=== PATIENT | male | born 1975 | race Caucasian/White ===

== ENCOUNTER 2017-05-27 09:33 | Emergency (ER) | payer OTHER ==
[~2017-05-27] VITALS: Ht 182.9 cm; Wt 100.0 kg
[~2017-05-27 09:33] MED LIST: BACTROBAN2 % EX; CEPHALEXIN500 MG OR; NAPROSYN500 MG PO; NO HOME MEDS
[2017-05-27] MEDS ORDERED: RIFAMPIN300 MG PO (09:46)
[2017-05-27 10:19] VITALS: BP 133/81
== END 2017-05-27 10:29 | disposition home or self-care (01) | DRG 951 ==
LOC: ED 09:33
DX: Z20.811 Contact with and (suspected) exposure to meningococcus (principal)

== ENCOUNTER 2018-04-20 15:59 | Emergency (ER) | payer BC ==
[~2018-04-20] VITALS: Ht 182.9 cm; Wt 110.4 kg
[~2018-04-20 15:59] MED LIST changes: +RIFAMPIN300 MG PO
[2018-04-20] MEDS ORDERED: MOTRIN400 MG PO (16:54)
[2018-04-20 16:56] VITALS: BP 147/94
== END 2018-04-20 17:12 | disposition home or self-care (01) | DRG 563 ==
LOC: ED 15:59
DX: S86.811A Strain of other muscle(s) and tendon(s) at lower leg level, right leg, initial encounter (principal); X58.XXXA Exposure to other specified factors, initial encounter

== ENCOUNTER 2018-04-24 12:23 | Emergency (ER) | payer BC ==
[~2018-04-24] VITALS: Ht 182.9 cm; Wt 100.0 kg
[~2018-04-24 12:23] MED LIST changes: +MOTRIN400 MG PO
[2018-04-24 13:11] LABS: IMMATURE GRANULOCYTES 0.3 % (0.0-5.0); MEAN CORPUSCULAR HGB 29.7 pG CALC (26.0-32.0); MEAN CORPUSCULAR HGB CONC 34.3 g/L CALC (32.0-36.0); NEUT# 6.5 thou/uL (1.82-7.42); RED BLOOD COUNT 5.52 mill/uL (4.70-6.10); RED CELL DISTRI WIDTH 11.9 % (11.5-15.5)
[2018-04-24 13:22] LABS: HEMATOCRIT 47.8 % (39.0-50.0); HEMOGLOBIN 16.4 g/dl (14.0-18.0); MEAN CELL VOLUME 86.6 fL CALC (80.0-100.0)
[2018-04-24 13:30] LABS: PROTHROMBIN TIME 10.9 SECONDS (9.0-12.5)
[2018-04-24 13:34] LABS: ALBUMIN 4.9 g/dL (3.2-5.0); ALKALINE PHOSPHATASE 85 u/l (38-126); ANION GAP 16 (6-22 (CALC)); BILIRUBIN, TOTAL 0.6 mg/dL (0.0-1.4); BUN 14 mg/dL (9-20); BUN/CREATININE RATIO 17 (12-20 (CALC)); CARBON DIOXIDE 26 mmol/l (22-30); CHLORIDE 106 mmol/l (95-108); CREATININE 0.9 mg/dL (0.7-1.3); ETHYL ALCOHOL 0 mg/dl (0-30); GFR > 60 ML/MIN (>=60 (CALC)); GFR FOR AFR.AMER. > 60 ML/MIN (>=60 (CALC)); LIPASE 118 u/l (23-300); SGOT/AST 23 u/l (17-59); SGPT/ALT 35 u/l (21-72); SODIUM 144 mmol/l (137-146); TOTAL PROTEIN 8.6 g/dL (6.3-8.2)
[2018-04-24 13:46] LABS: MYOGLOBIN 22 ng/mL (0 - 121)
[2018-04-24 13:51] LABS: URINE BILIRUBIN - DIPSTICK NEGATIVE (NEGATIVE); URINE BLOOD DIPSTICK TRACE-INTACT (NEGATIVE); URINE COLOR YELLOW; URINE GLUCOSE - DIPSTICK NEGATIVE (NEGATIVE); URINE KETONE TRACE mg/dL (NEGATIVE); URINE LEUK ESTERASE NEGATIVE (NEGATIVE); URINE NITRITE - DIPSTICK NEGATIVE (Negative); URINE PROTEIN - DIPSTICK NEGATIVE (NEG-TRACE)
[2018-04-24 13:54] LABS: URINE CLARITY HAZY
[2018-04-24 13:55] LABS: BARBITURATES NEGATIVE (NEGATIVE); COCAINE NEGATIVE (NEGATIVE); METHADONE NEGATIVE (NEGATIVE); OXCYCODONE NEGATIVE (NEGATIVE); TETRAHYDROCANNABIONOL NEGATIVE (NEGATIVE); TRICYLIC ANTIDEPRESSANTS NEGATIVE (NEGATIVE)
[2018-04-24 15:12] VITALS: BP 153/80
== END 2018-04-24 15:13 | disposition home or self-care (01) | DRG 948 ==
LOC: ED 12:23
PROVIDERS: Emergency Medicine
DX: R41.82 Altered mental status, unspecified (principal)

== ENCOUNTER 2018-04-26 12:11 | Emergency (ER) | payer BC ==
[~2018-04-26] VITALS: Ht 182.9 cm; Wt 102.3 kg
[2018-04-26 12:47] LABS: HEMATOCRIT 47.5 % (39.0-50.0); HEMOGLOBIN 16.5 g/dl (14.0-18.0); IMMATURE GRANULOCYTES 0.4 % (0.0-5.0); MEAN CELL VOLUME 85.4 fL CALC (80.0-100.0); MEAN CORPUSCULAR HGB 29.7 pG CALC (26.0-32.0); MEAN CORPUSCULAR HGB CONC 34.7 g/L CALC (32.0-36.0); NEUT# 8.58 thou/uL (1.82-7.42); RED BLOOD COUNT 5.56 mill/uL (4.70-6.10); RED CELL DISTRI WIDTH 11.8 % (11.5-15.5)
[2018-04-26 13:09] LABS: PROTHROMBIN TIME 11.2 SECONDS (9.0-12.5)
[2018-04-26 13:18] LABS: ALBUMIN 4.7 g/dL (3.2-5.0); ALKALINE PHOSPHATASE 86 u/l (38-126); ANION GAP 16 (6-22 (CALC)); BILIRUBIN, TOTAL 0.8 mg/dL (0.0-1.4); BUN 15 mg/dL (9-20); BUN/CREATININE RATIO 19 (12-20 (CALC)); CARBON DIOXIDE 23 mmol/l (22-30); CHLORIDE 106 mmol/l (95-108); CREATININE 0.8 mg/dL (0.7-1.3); GFR > 60 ML/MIN (>=60 (CALC)); GFR FOR AFR.AMER. > 60 ML/MIN (>=60 (CALC)); LIPASE 165 u/l (23-300); POTASSIUM 3.8 mmol/l (3.5-5.1); SGOT/AST 39 u/l (17-59); SGPT/ALT 45 u/l (21-72); SODIUM 141 mmol/l (137-146)
[2018-04-26 14:41] LABS: BARBITURATES NEGATIVE (NEGATIVE); COCAINE NEGATIVE (NEGATIVE); METHADONE NEGATIVE (NEGATIVE); OXCYCODONE NEGATIVE (NEGATIVE); TETRAHYDROCANNABIONOL NEGATIVE (NEGATIVE); TRICYLIC ANTIDEPRESSANTS NEGATIVE (NEGATIVE)
[2018-04-26 16:18] VITALS: BP 158/88
== END 2018-04-26 16:19 | disposition short-term general hospital (02) | DRG 948 ==
LOC: ED 12:11
PROVIDERS: Emergency Medicine
DX: R41.82 Altered mental status, unspecified (principal)

== ENCOUNTER 2018-05-03 10:21 | Emergency (ER) | payer BC ==
[~2018-05-03] VITALS: Ht 182.9 cm; Wt 100.0 kg
[2018-05-03 10:57] LABS: HEMATOCRIT 48.9 % (39.0-50.0); HEMOGLOBIN 16.7 g/dl (14.0-18.0); IMMATURE GRANULOCYTES 0.3 % (0.0-5.0); MEAN CELL VOLUME 86.4 fL CALC (80.0-100.0); MEAN CORPUSCULAR HGB 29.5 pG CALC (26.0-32.0); MEAN CORPUSCULAR HGB CONC 34.2 g/L CALC (32.0-36.0); NEUT# 12.74 thou/uL (1.82-7.42); RED BLOOD COUNT 5.66 mill/uL (4.70-6.10); RED CELL DISTRI WIDTH 11.9 % (11.5-15.5)
[2018-05-03 11:13] LABS: ALBUMIN 4.5 g/dL (3.2-5.0); ALKALINE PHOSPHATASE 93 u/l (38-126); ANION GAP 20 (6-22 (CALC)); BILIRUBIN, TOTAL 0.7 mg/dL (0.0-1.4); BUN 16 mg/dL (9-20); BUN/CREATININE RATIO 18 (12-20 (CALC)); CARBON DIOXIDE 22 mmol/l (22-30); CHLORIDE 108 mmol/l (95-108); CREATININE 0.9 mg/dL (0.7-1.3); GFR > 60 ML/MIN (>=60 (CALC)); GFR FOR AFR.AMER. > 60 ML/MIN (>=60 (CALC)); MAGNESIUM 2.3 mg/dL (1.6-2.3); POTASSIUM 4.4 mmol/l (3.5-5.1); SGOT/AST 24 u/l (17-59); SGPT/ALT 43 u/l (21-72); SODIUM 146 mmol/l (137-146); TOTAL PROTEIN 7.7 g/dL (6.3-8.2)
[2018-05-03 11:44] LABS: TSH, 3RD GENERATION 3.28 uIU/mL (0.47 - 4.68)
[2018-05-03 12:39] LABS: URINE BLOOD DIPSTICK MODERATE (NEGATIVE); URINE COLOR YELLOW; URINE GLUCOSE - DIPSTICK NEGATIVE (NEGATIVE); URINE KETONE 15 mg/dL (NEGATIVE); URINE LEUK ESTERASE TRACE (NEGATIVE); URINE NITRITE - DIPSTICK NEGATIVE (Negative); URINE PROTEIN - DIPSTICK 30 mg/dL (NEG-TRACE); URINE SPECIFIC GRAVITY 1.025; URINE UROBILINOGEN - DIPSTICK 0.2 E.U./dL (0.2)
[2018-05-03 12:47] LABS: URINE BILIRUBIN - DIPSTICK SMALL (NEGATIVE); URINE CLARITY CLOUDY
[2018-05-03 12:48] LABS: URINE BACTERIA MANY hpf; URINE EPITHELIAL CELLS FEW EPI/hpf (0-FEW); URINE MUCUS MODERATE hpf (NONE-FEW)
[2018-05-03 13:49] LABS: BARBITURATES NEGATIVE (NEGATIVE); COCAINE NEGATIVE (NEGATIVE); METHADONE NEGATIVE (NEGATIVE); OXCYCODONE NEGATIVE (NEGATIVE); TETRAHYDROCANNABIONOL NEGATIVE (NEGATIVE); TRICYLIC ANTIDEPRESSANTS NEGATIVE (NEGATIVE)
--- NOTE | 2018-05-03 15:03 | NUR ---
CM received a request for assistance in placement of the patient from E.D staff d/t the patient's catatonic state being psychiatric and not medical. WADE reviewed the chart and then placed a call to Abundio Barbour at [phone] and spoke with Ara in intake. CM descibed the patient's current status and Ara advised they cannot take anyone that cannot walk or feed themselves or hydrate themselves. CM voiced understanding. Ara did advise that if the patient's status changes to the point where he can feed himself, walk and so forth then they can evaluate at that time. CM voiced appreciation and ended the call. WADE then called the ED department and spoke with Charge Nurse Clayton and advised him of the afore mentioned conversation. Torres advised that [facility] is currently working on a direct admit to [facility]. Clayton stated he will call [facility]und[facility] back if [facility] don't workout. WADE confirmed he has the number for [facility] and he stated he does. WADE asked to be kept informed.
[2018-05-03 18:40] VITALS: BP 142/82
== END 2018-05-03 18:40 | DRG 885 ==
LOC: ED 10:21
PROVIDERS: Family Medicine
DX: F20.2 Catatonic schizophrenia (principal)
CPT/HCPCS: J2060; S0166